=== PATIENT | female | born 2000 ===

== ENCOUNTER 2022-09-05 09:27 | Outpatient (CLI) | payer OTHER | END 2022-09-05 10:49 | disposition home or self-care (01) | LOC: PRENATAL 09:27 | PROVIDERS: ATTEND Obstetrics & Gynecology Maternal & Fetal Medicine | DX: O35.9XX0 Maternal care for (suspected) fetal abnormality and damage, unspecified, not applicable or unspecified (principal); O35.3XX0 Maternal care for (suspected) damage to fetus from viral disease in mother, not applicable or unspecified; Z3A.22 22 weeks gestation of pregnancy ==